=== PATIENT | female | born 1975 | race Caucasian/White ===

== ENCOUNTER 2018-03-22 01:58 | Emergency (ER) | payer BC ==
[2018-03-22 02:53] VITALS: BP 135/86
--- NOTE | 2018-03-22 03:05 | ED ---
Valentin Brady Rebecca, scribed for Ralf Woodard MD on 03/22/18 at 0217 . GI/ HPI - HPI Summary HPI Summary: Pt is a 42 y/o F who presents to ED due to a tampon that she cannot remove. Pt placed the tampon tonight and she left her house, went to a concert, danced, and returned home unable to remove the tampon. Pt reports no sexual intercourse and that she had only placed 1 tampon. Tampon has been in for about 8 hours. Denies any symptoms including pain, discharge, and bleeding. - History of Current Complaint Chief Complaint: EDVaginalBleeding Time Seen by Provider: 03/22/18 02:09 Stated Complaint: VAGINAL PROBLEM Hx Obtained From: Patient Onset/Duration: Still Present Current Severity: None Pain Intensity: 0 Associated Signs and Symptoms: Positive: Other: - Tampon that cannot be removed Aggravating Factor(s): Nothing Alleviating Factor(s): Nothing - Allergy/Home Medications Allergies/Adverse Reactions: Allergies Allergy/AdvReac Type Severity Reaction Status Date / Time clindamycin AdvReac Rash Verified 03/22/18 02:05 PMH/Surg Hx/FS Hx/Imm Hx Previously Healthy: Yes Endocrine/Hematology History: Denies: Hx Diabetes Cardiovascular History: Denies: Hx Coronary Artery Disease Infectious Disease History: No Infectious Disease History: Denies: Traveled Outside the [place] in Last 30 Days - Family History Known Family History: Positive: Unknown - Adopted - Social History Alcohol Use: Weekly Substance Use Type: Reports: None Hx Tobacco Use: No Smoking Status (MU): Never Smoked Tobacco Review of Systems Negative: Fever Positive: other - Suspected tampon NEGATIVE: Vaginal bleeding. Negative: discharge, pain All Other Systems Reviewed And Are Negative: Yes Physical Exam - Summary Physical Exam Summary: Appearance: Well appearing, no pain distress Skin: warm, dry, reflects adequate perfusion Head/face: normal Eyes: EOMI, KIERA ENT: normal Neck: supple, non-tender Respiratory: CTA, breath sounds present Cardiovascular: RRR, pulses symmetrical Abdomen: non-tender, soft Bowel Sounds: present Musculoskeletal: normal, strength/ROM intact Neuro: normal, sensory motor intact, A&Ox3 Pelvic: A little bit of blood frmo the cervix. Examined the posterior fornix and there is no FB visualized. Triage Information Reviewed: Yes Vital Signs On Initial Exam: Initial Vitals Temp Pulse Resp BP Pulse Ox 98.0 F 100 18 142/90 100 03/22/18 02:01 03/22/18 02:01 03/22/18 02:01 03/22/18 02:01 03/22/18 02:01 Vital Signs Reviewed: Yes Diagnostics - Vital Signs Vital Signs Temp Pulse Resp BP Pulse Ox 03/22/18 02:01 98.0 F 100 18 142/90 100 - Laboratory Lab Statement: Any lab studies that have been ordered have been reviewed, and results considered in the medical decision making process. GIGU Course/Dx - Course Course Of Treatment: vag vault searched, especially post fornix and no FB seen. Small amt of menstral blood from cervix. - Diagnoses Provider Diagnoses: Normal pelvic exam Discharge - Sign-Out/Discharge Documenting (check all that apply): Discharge/Admit/Transfer - Discharge - Discharge Plan Condition: Good Disposition: HOME Patient Education Materials: Vaginal Foreign Body (ED) Referrals: Citlali Betancur MD [Primary Care Provider] - Additional Instructions: Return if worse or other concern. No foreign body was found. Call your OBGYN to follow up if you experience any problems such as fever, discharge, foul odor or other concerns. - Billing Disposition and Condition Condition: STABLE Disposition: HOME The documentation as recorded by the Valentin carter Rebecca accurately reflects the service I personally performed and the decisions made by me, Ralf Woodard MD.
== END 2018-03-22 02:52 | disposition home or self-care (01) ==
LOC: ED 01:58
DX: Z01.419 Encounter for gynecological examination (general) (routine) without abnormal findings (principal)
CPT/HCPCS: 99281

== ENCOUNTER 2024-01-28 13:30 | Observation (INO) ==
[2024-01-28] MEDS ORDERED: Midazolam 5 mg/5 ml VIAL 1 mg/ml 5 ml VIAL (5 mg) ONE (14:40)
[2024-01-28] MEDS ORDERED: fentaNYL 100 mcg/2 ml 50 MCG/ML VIAL ONE (14:40)
[2024-01-28] MEDS ORDERED: Iohexol 350 (CONTRAST) 100 ML PAK IV ONE (14:41)
[2024-01-28] MEDS ORDERED: Lidocaine 1% VIAL 10 MG/ML 30 ML VIAL ONE (14:41)
[2024-01-28] MEDS ORDERED: Ondansetron 4 mg VIAL 2 MG/ML 2 ml VIAL ONE (14:57)
[2024-01-28] MEDS ORDERED: oxyCODONE SR 10 mg TAB ONE (14:57)
[2024-01-28] MEDS ORDERED: Scopolamine 1 mg/72hr PATCH ONE (14:58)
[2024-01-28 15:06] LABS: Hematocrit 28.6 % (35-45); Hemoglobin 9.2 g/dL (11.5-14.3); Mean Corpuscular Hemoglobin 25.7 pg (27-33); Mean Corpuscular Hgb Conc 32.3 g/dL (31-36); Mean Corpuscular Volume 79.6 fL (80-97); Mean Platelet Volume 8.6 fL (7.5-11.2); Platelet Count 208 10^3/uL (150-450); Red Cell Distribution Width 31.4 % (12-17); White Blood Count 6.4 10^3/uL (3.8-11.8)
[2024-01-28] MEDS ORDERED: Heparin 2 UNITS/ML IVPREMIX 3,000 UNIT/1,500 ML BAG IV ONE (15:24)
[2024-01-28] MEDS ORDERED: Naloxone 0.4 mg VIAL 0.4 mg/ml 1 ml VIAL IV PUSH PRN (15:26)
[2024-01-28] MEDS ORDERED: Flumazenil 0.5 mg/5 ml 0.1 MG/ML 5 ml VIAL IV PRN (15:26)
[2024-01-28] MEDS ORDERED: nitroGLYCERIN DRIP 25,000 MCG/250 ML BTL ONE (15:30)
[2024-01-28 15:34] LABS: Albumin 3.6 g/dL (3.2-5.2); Albumin/Globulin Ratio 1.6 (1-3); Creatinine, Serum 0.7 mg/dL (0.51-0.95); Globulin 2.2 g/dL (2-4); Total Bilirubin 0.5 mg/dL (0.2-1.0); Total Protein 5.8 g/dL (6.4-8.9)
[2024-01-28 15:44] LABS: ABS Eosinophils 0.1 10^3/uL (0.0-0.5); ABS Lymphocytes 1.5 10^3/uL (1.0-4.8); ABS Monocytes 0.6 10^3/uL (0.0-0.9); ABS Neutrophils 4.1 10^3/uL (1.5-7.6); Eosinophil % 2.2 %; Lymphocyte % 23.2 %; Nucleated Red Blood Cells % 0.1 %/100WBC (0.0-0.8)
[2024-01-28 15:47] LABS: Platelet Count 208 10^3/ul (150-450); Schistocytes ABSENT
[2024-01-28] MEDS: ceFAZolin 1 GM X ONE DOSE (AddVan) IVPB (15:55)
[2024-01-28 16:04] LABS: Activated Partial Thrombo Time 29.9 seconds (26.0-38.0); INR 0.95 (0.83-1.13)
[2024-01-28] MEDS ORDERED: HYDROmorphone 0.5 MG/0.5 ML SYRINGE ONE ×2 (16:28→16:44)
[2024-01-28] MEDS: fentaNYL 100 mcg/2 ml 50 MCG/ML VIAL IV SLOW PU ONE (16:43)
[2024-01-28] MEDS: Midazolam 10 mg/10 ml VIAL 1 mg/ml 10 ml VIAL (10 mg) IV SLOW PU ONE (16:43)
[2024-01-28] MEDS: NS 0.9% 1,000 ML IV SCH (17:05)
[2024-01-28] MEDS: HYDROmorphone PCA 20 MG/20 ML PCA.SYRING PCA SCH (17:24)
[2024-01-28] MEDS ORDERED: Prochlorperazine 5 mg/ml 2 ml VIAL (10 mg) ONE (17:32)
[2024-01-28] MEDS: Prochlorperazine 5 mg/ml 2 ml VIAL (10 mg) IV ONE (17:35)
[2024-01-28] MEDS: Ondansetron 4 mg VIAL 2 MG/ML 2 ml VIAL IV SCH (22:32)
[2024-01-28 22:35] LABS: Hematocrit 28.3 % (35-45); Hemoglobin 8.6 g/dL (11.5-14.3); Mean Corpuscular Hgb Conc 30.4 g/dL (31-36); Mean Corpuscular Volume 82.3 fL (80-97); Mean Platelet Volume 8.9 fL (7.5-11.2); Platelet Count 190 10^3/uL (150-450); Red Blood Count 3.43 10^6/uL (3.63-4.92); White Blood Count 6.5 10^3/uL (3.8-11.8)
[2024-01-29 04:10] LABS: Hematocrit 29.1 % (35-45); Hemoglobin 9.2 g/dL (11.5-14.3); Mean Corpuscular Hemoglobin 25.5 pg (27-33); Mean Corpuscular Hgb Conc 31.7 g/dL (31-36); Mean Corpuscular Volume 80.5 fL (80-97); Mean Platelet Volume 8.7 fL (7.5-11.2); Platelet Count 199 10^3/uL (150-450); Red Blood Count 3.62 10^6/uL (3.63-4.92); Red Cell Distribution Width 31.2 % (12-17); White Blood Count 11.2 10^3/uL (3.8-11.8)
[2024-01-29 04:21] LABS: Calcium 7.9 mg/dL (8.6-10.3); Creatinine, Serum 0.47 mg/dL (0.51-0.95); Potassium 4.5 mmol/L (3.5-5.0); eGFR CKD-EPI 118.8 (>60)
[2024-01-29] MEDS: Amphetamine MIXED SALT 10mgTAB PO SCH (08:26)
[2024-01-29] MEDS ORDERED: HYDROcodone/ACETAMIN 5/325 mg TAB PO PRN (08:41)
[2024-01-29 10:02] VITALS: BP 147/86
[2024-01-29] MEDS: Ferric Gluconate IV 125 MG in NS 0.9% 100 ml BAG 100 ML IVPB ONE (10:05)
[2024-01-29] MEDS: Ketorolac 10 mg TAB (NF) PO SCH (11:33)
[2024-01-29 11:59] LABS: Hematocrit 29.2 % (35-45); Hemoglobin 9.2 g/dL (11.5-14.3); Mean Corpuscular Hemoglobin 25.8 pg (27-33); Mean Corpuscular Hgb Conc 31.6 g/dL (31-36); Mean Corpuscular Volume 81.5 fL (80-97); Mean Platelet Volume 8.4 fL (7.5-11.2); Platelet Count 231 10^3/uL (150-450); Red Blood Count 3.58 10^6/uL (3.63-4.92); Red Cell Distribution Width 30.7 % (12-17)
== END 2024-01-29 12:44 | disposition home or self-care (01) ==
LOC: EDHOLD 13:30 → ED 13:30 → SSU 15:41
PROVIDERS: ADMIT Student in an Organized Health Care Education/Training Program; ATTEND Student in an Organized Health Care Education/Training Program
PROC: ANG.UFE (2024-01-28 15:15)